=== PATIENT | male | born 1975 | race Caucasian/White ===

== ENCOUNTER → 2025-02-02 14:36 | Outpatient (REF) | payer BC, SELFPAY | LOC: HWRAD 14:36 | PROVIDERS: ATTENDING PHYSICIAN Student in an Organized Health Care Education/Training Program | DX: R07.81 Pleurodynia (principal) | CPT/HCPCS: 74150 ==

== ENCOUNTER → 2025-03-01 13:19 | Outpatient (REF) | payer BC, SELFPAY | LOC: RCS 13:19 | PROVIDERS: ATTENDING PHYSICIAN Student in an Organized Health Care Education/Training Program | DX: R06.02 Shortness of breath (principal) | CPT/HCPCS: 93017; 93350 ==

== ENCOUNTER 2025-05-15 06:25 | Day surgery (SDC) | payer BC, SELFPAY | END 2025-05-15 12:06 | disposition home or self-care (01) | LOC: GI 06:25 | PROVIDERS: ATTENDING PHYSICIAN Student in an Organized Health Care Education/Training Program; FAMILY PHYSICIAN Student in an Organized Health Care Education/Training Program | DX: R12 Heartburn (principal) | CPT/HCPCS: 43239; 88305; 88342 ==